=== PATIENT | female | born 1985 | race Caucasian/White ===

== ENCOUNTER 2019-03-18 20:27 | Emergency (ER) | payer OTHER ==
[~2019-03-18] VITALS: Ht 170.2 cm; Wt 90.7 kg
[~2019-03-18 20:27] MED LIST: FERR-252 PO; FOLI1TAB19 PO; IBUP-974 PO; PREN-385 PO
--- NOTE | 2019-03-18 20:56 | NUR ---
TO LOBBY A/W BED, VIA WHEELCHAIR
[2019-03-19] MEDS ORDERED: KETOROLAC 30 MG/ML VIAL IM ONE (01:55)
--- NOTE | 2019-03-19 02:12 | NUR ---
33 Y/O FEMALE C/O BACK PAIN, STARTED 30 MINUTESNO TRAUMA NOR INJURY. PAIN IS A 5/10 ACUTE PAIN. PMH: ASTHMA; THYROID NKDA
--- NOTE | 2019-03-19 03:16 | NUR ---
Patient discharged with v/s stable. Written and verbal after care instructions given and explained. Patient alert, oriented and verbalized understanding of instructions. Ambulatory with steady gait. All questions addressed prior to discharge. ID band removed. Patient advised to follow up with PMD. Rx of ZOFRAN 4MG; NORCO 5MG-325MG; MIRALAZ POWDER FOR SOLUTION 17 GRAMS given. Patient educated on indication of medication including possible reaction and side effects. Opportunity to ask questions provided and answered.
== END 2019-03-19 03:16 | disposition home or self-care (01) ==
LOC: MED 20:27
DX: K80.80 Other cholelithiasis without obstruction (principal); J45.909 Unspecified asthma, uncomplicated; Z79.1 Long term (current) use of non-steroidal anti-inflammatories (NSAID); Z79.899 Other long term (current) drug therapy; Z86.39 Personal history of other endocrine, nutritional and metabolic disease
CPT/HCPCS: 72080; 74176; 81025; 96372; 99284; J1885

== ENCOUNTER 2019-07-13 00:52 | Emergency (ER) | payer OTHER ==
[~2019-07-13] VITALS: Ht 170.2 cm; Wt 93.0 kg
[2019-07-13 01:00] VITALS: BP 134/60
--- NOTE | 2019-07-13 01:00 | NUR ---
TO BED # 08 AMBULATORY
--- NOTE | 2019-07-13 01:16 | NUR ---
33 Y/O FEMALE C/O BACK PAIN THAT RADIATES TO ABD X 2 HRS. +N/V/D. PT STATES 2 EPISODES OF VOMITING AND 1 EPISODE OF DIARRHEA PRIOR TO VISIT. DENIE BLOOD IN STOOL/VOMIT. 10 SQUEEZING, INTERMITTENT PAIN. PT STATES SHE TOOK ADVIL X1 HR AGO WITH NO PAIN RELIEF. LMP 07/02/19. PT SITTING ON EDGE OF BED, RESTLESS WITH TEARS IN HER EYES. RR EVEN AND UNLABORED. MEDHX: GALLSTONES, THYROID DISEASE ALLERGIES: NKA
--- NOTE | 2019-07-13 01:40 | NUR ---
SEEN AND EXAMINED BY CHLOE WITH ORDERS AND CARRIED OUT.
[2019-07-13] MEDS ORDERED: MORPHINE SULFATE 4 MG/ML SYR IM ONE (01:45)
--- NOTE | 2019-07-13 01:45 | NUR ---
Blood for labwork drawn from [facility] per [facility] ORDER. Patient tolerated WELL
--- NOTE | 2019-07-13 01:46 | NUR ---
MEDICATED PER [facility] ORDER, TOLERATED WELL.
[2019-07-13 02:06] LABS: BASOPHILS # (AUTO) 0.1 K/uL (0.00-0.22); BASOPHILS % (AUTO) 1.4 % (0.0-2.0); EOSINOPHILS # (AUTO) 0.1 K/uL (0-0.4); EOSINOPHILS % (AUTO) 1.5 % (0.0-4.0); HEMATOCRIT 36.8 % (36-48); HEMOGLOBIN 11.8 g/dL (12.0-16.0); LYMPHOCYTES # (AUTO) 2.2 K/uL (2.5-16.5); MEAN CORPUSCULAR HEMOGLOBIN 26 pg (27-31); MEAN CORPUSCULAR HGB CONC 32 g/dL (33-37); MEAN CORPUSCULAR VOLUME 80.4 fL (80-94); MONOCYTES # (AUTO) 0.5 K/uL (0.8-1.0); MONOCYTES % (AUTO) 6.1 % (1.7-9.3); NEUTROPHILS # (AUTO) 5.8 K/uL (1.8-7.7); PLATELET COUNT (AUTO) 248 K/uL (140-450); RED BLOOD CELL COUNT(AUTO) 4.57 MIL/uL (4.20-5.40); RED CELL DISTRIBUTION WIDTH 13.9 % (11.6-13.7)
[2019-07-13 02:06] LABS: APPEARANCE,URINE CLOUDY (CLEAR); BILIRUBIN,URINE NEGATIVE (NEGATIVE); BLOOD, URINE NEGATIVE (NEGATIVE); COLOR,URINE YELLOW (YELLOW); LEUKOCYTE ESTERASE ,URINE 1+ (NEGATIVE); NITRITE, URINE NEGATIVE (NEGATIVE); UGLUCOSE NEGATIVE (NEGATIVE)
[2019-07-13 02:14] LABS: BARBITURATE, URINE NEG. ng/ml (NEG <=200); BENZODIAZEPINE, URINE NEG. ng/mL (NEG <=200); CANNABINOID, URINE POS. ng/mL (NEG <=50); COCAINE, URINE NEG. ng/mL (NEG <=300); OPIATE, URINE NEG. ng/mL (NEG <=2000); PHENCYCLIDINE SCREEN,URINE NEG. ng/mL (NEG <=25)
[2019-07-13 02:22] LABS: ALBUMIN 3.6 g/dL (3.4-5.0); ANION GAP 12.5 (8-16); CREATININE 0.7 mg/dL (0.6-1.3); POTASSIUM 3.5 mmol/L (3.5-5.1); TOTAL BILIRUBIN 0.2 mg/dL (0.0-1.0)
[2019-07-13 02:28] LABS: WHITE BLOOD COUNT (AUTO) 8.7 K/uL (4.8-10.8)
--- NOTE | 2019-07-13 02:29 | NUR ---
COMPLAINED OF N/V, ER[facility] NOTED.
[2019-07-13] MEDS ORDERED: ONDANSETRON 4 MG/2 ML VIAL IVP ONE (02:30)
[2019-07-13] MEDS ORDERED: NACL 0.9% 1,000 ML IV ONE (02:30)
--- NOTE | 2019-07-13 02:33 | NUR ---
MEDICATED FOR N/V, TOLERATED, AND STILL COMPLAINING OF PAIN , ERMD NOTED.
[2019-07-13 02:34] LABS: RBC,URINE 0-5 /HPF (0-5); URINE AMORPHOUS URATE 4+ /HPF (None Seen)
[2019-07-13] MEDS ORDERED: KETOROLAC 30 MG/ML VIAL IVP ONE (02:45)
--- NOTE | 2019-07-13 03:30 | NUR ---
ALL RESULTS BACK AND NOTED BY ERMD AND FOR D/C
[2019-07-13 03:50] VITALS: BP 128/70
--- NOTE | 2019-07-13 03:50 | NUR ---
Patient discharged with v/s stable. Written and verbal after care instructions given and explained. Patient alert, oriented and verbalized understanding of instructions. Ambulatory with steady gait. All questions addressed prior to discharge. ID band removed. Patient advised to follow up with PMD. Rx of PRECOGESIC 325-12.5 MG, BENTYL 20MG, MACROBID CAPSULE given. Patient educated on indication of medication including possible reaction and side effects. Opportunity to ask questions provided and answered.
== END 2019-07-13 03:50 | disposition home or self-care (01) ==
LOC: MED 00:52
DX: J45.909 Unspecified asthma, uncomplicated (principal); Z86.39 Personal history of other endocrine, nutritional and metabolic disease; Z98.890 Other specified postprocedural states; Z79.1 Long term (current) use of non-steroidal anti-inflammatories (NSAID); Z79.899 Other long term (current) drug therapy
CPT/HCPCS: 36415; 80053; 80305; 81001; 81025; 83690; 85025; 87086; 96372; 96374; 96375; 99283; J1885; J2270; J2405; J7030